=== PATIENT | male | born 1975 | race Two or more races ===

== ENCOUNTER 2019-01-29 15:49 | Emergency (ER) | payer SELFPAY ==
[~2019-01-29] VITALS: Ht 170.2 cm; Wt 81.6 kg
[~2019-01-29 15:49] MED LIST: MUPI22OI2 TP; ORPH100T PO
[2019-01-29 16:40] VITALS: BP 132/84
[2019-01-29] MEDS ORDERED: CEPH500T PO (16:50)
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
== END 2019-01-29 17:03 | disposition home or self-care (01) ==
LOC: ER 15:49
DX: S51.002A Unspecified open wound of left elbow, initial encounter (principal); L02.414 Cutaneous abscess of left upper limb; V89.2XXA Person injured in unspecified motor-vehicle accident, traffic, initial encounter; Y93.89 Activity, other specified; Y92.488 Other paved roadways as the place of occurrence of the external cause; Y99.8 Other external cause status
CPT/HCPCS: 99283